=== PATIENT | male | born 1990 | race Caucasian/White ===

== ENCOUNTER 2017-07-07 13:19 | Emergency (ER) | payer OTHER ==
[~2017-07-07] VITALS: Ht 182.9 cm; Wt 70.0 kg
[2017-07-07 13:25] VITALS: BP 150/98; PULSE 104; RESP 16; TEMP 97.3; O2SAT 99
--- NOTE | 2017-07-07 14:31 | RADRPT ---
EXAM DATE/TIME: 07/07/2017 14:08 [place] COMPARISON: No previous studies available for comparison. INDICATIONS : Post reduction of the left shoulder. MEDICAL HISTORY : None. SURGICAL HISTORY : None. ENCOUNTER: Initial ACUITY: 1 day PAIN SCORE: 7/10 LOCATION: Left shoulder. FINDINGS: There is an old, healed fracture of the left clavicle. The humeral head is well situated within the glenoid fossa. The visualized pulmonary parenchyma is clear. CONCLUSION: 1. Old, healed left clavicular fracture. 2. The humeral head appears well aligned within the glenoid fossa. Huber Coleman MD on July 07, 2017 at 14:27 Board Certified Radiologist. This report was verified electronically.
[2017-07-07] MEDS ORDERED: IBUP-232 PO (14:45)
[2017-07-07] MEDS ORDERED: ROBA750T PO (14:45)
--- NOTE | 2017-07-07 14:47 | PD ---
HPI Chief Complaint: Injury Time Seen by Provider: 13:52 Travel History International Travel<30 days: No Contact w/Intl Traveler<30days: No Traveled to known affect area: No History of Present Illness HPI 26-year-old male presents to the emergency room for evaluation of left shoulder dislocation. Patient was riding his skim board when he fell off and landed on the shoulder. [place]. Reports immediate pain. States he has had his shoulder dislocated 5 times previously. He requests not to be placed under conscious sedation as it will make him drowsy the rest of the day. He has never seen an orthopedic physician for this. Patient denies any other chronic medical conditions or daily medications. Denies paresthesias. Reports significant pain worse with range of motion. Patient denies any chronic medical conditions or daily medications. PFSH Social History Alcohol Use: Yes (OCC) Tobacco Use: No Substance Use: No Allergies-Medications (Allergen,Severity, Reaction): Coded Allergies: No Known Allergies (Unverified , 07/07/17) Reported Meds & Prescriptions Reported Meds & Active Scripts Active Robaxin (Methocarbamol) 750 Mg Tab 750 Mg PO Q8HR Ibuprofen 600 Mg Tab 600 Mg PO Q8HR PRN Review of Systems Except as stated in HPI: all other systems reviewed are Neg Physical Exam Narrative GENERAL: Well-nourished, well-developed male in no acute distress. Afebrile. Ambulatory. Resting comfortably. SKIN: Focused skin assessment warm/dry. HEAD: Normocephalic. EYES: No scleral icterus. No injection or drainage. NECK: Supple, trachea midline. No JVD or lymphadenopathy. CARDIOVASCULAR: Regular rate and rhythm without murmurs, gallops, or rubs. RESPIRATORY: Breath sounds equal bilaterally. No accessory muscle use. MUSCULOSKELETAL: No cyanosis, or edema. 2+ radial pulse in the left. Obvious dislocation of the left shoulder. Limited range of motion secondary to pain. Data Data Last Documented VS Vital Signs Date Time Temp Pulse Resp B/P (MAP) Pulse Ox O2 Delivery O2 Flow Rate FiO2 07/07/17 14:11 18 Room Air 07/07/17 13:25 97.3 104 150/98 (115) 99 Orders Orders Shoulder, Limited(2vws) (07/07/17 ) Support Splint (07/07/17 14:37) Ed Discharge Order (07/07/17 14:44) Sling And Swathe (07/07/17 ) [facility] Medical Decision Making Medical Screen Exam Complete: Yes Emergency Medical Condition: Yes Medical Record Reviewed: Yes Differential Diagnosis Dislocation, contusion, abrasion, fracture Narrative Course 26-year-old male presents to the emergency room for evaluation of recurrent dislocation of the left shoulder. Patient dislocated his shoulder just prior to arrival when he fell off of his skim board. Denies paresthesias. Reports significant pain, worse with range of motion. Left upper extremity is neurovascularly intact with 2+ radial pulse. Radial, ulnar, median nerves intact. Patient asked not to be sedated because he did not want to be drowsy the rest of the day. Lidocaine was inserted into the patient's shoulder and shoulder was reduced, see alternate provider note for details. Postreduction films are unremarkable for acute injury. He was given a sling but refused. He was discharged with prescriptions for ibuprofen and Robaxin. Told to follow-up with an orthopedic surgeon or return for worsening symptoms. He understands and agrees to plan. Diagnosis Primary Impression: Recurrent dislocation, left shoulder Referrals: Orthopaedic Surgeon Primary Care Physician Additional Instructions: Rest and drink plenty of fluids. Take Robaxin as directed, as needed for pain. Take ibuprofen with food as directed, as needed for pain. Apply ice to the affected area for 20 minutes at a time, as needed for pain and swelling. Follow-up with a primary care physician. Return to the emergency room for worsening symptoms. Scripts Methocarbamol (Robaxin) 750 Mg Tab 750 MG PO Q8HR for Muscle Spasm, #12 TAB 0 Refills Prov: Wolfgang Roman MD 07/07/17 Ibuprofen (Ibuprofen) 600 Mg Tab 600 MG PO Q8HR Y for PAIN, #15 TAB 0 Refills Prov: Wolfgang Roman MD 07/07/17 Disposition: 01 DISCHARGE HOME Condition: Stable Juju Castellano Jul 07, 2017 14:47
--- NOTE | 2017-07-07 14:50 | PD ---
Physical Exam Narrative patient was seen by me and my certified surgical first assistant. Data Data Last Documented VS Vital Signs Date Time Temp Pulse Resp B/P (MAP) Pulse Ox O2 Delivery O2 Flow Rate FiO2 07/07/17 14:11 18 Room Air 07/07/17 13:25 97.3 104 150/98 (115) 99 Orders Orders Shoulder, Limited(2vws) (07/07/17 ) Support Splint (07/07/17 14:37) Ed Discharge Order (07/07/17 14:44) MDM Supervised Visit with ALONDRA: Yes Procedures Procedure Narrative Reduction of left shoulder dislocation: 10 cc 1% lidocaine left shoulder joint injection. Traction countertraction technique applied to left arm. The dislocation was reduced. Postreduction x- ray was obtained. Sling applied. Diagnosis Primary Impression: Recurrent dislocation, left shoulder Referrals: Orthopaedic Surgeon Primary Care Physician Additional Instruction: Rest and drink plenty of fluids. Take Robaxin as directed, as needed for pain. Take ibuprofen with food as directed, as needed for pain. Apply ice to the affected area for 20 minutes at a time, as needed for pain and swelling. Follow-up with a primary care physician. Return to the emergency room for worsening symptoms. Scripts Methocarbamol (Robaxin) 750 Mg Tab 750 MG PO Q8HR for Muscle Spasm, #12 TAB 0 Refills Prov: Wolfgang Roman MD 07/07/17 Ibuprofen (Ibuprofen) 600 Mg Tab 600 MG PO Q8HR Y for PAIN, #15 TAB 0 Refills Prov: Wolfgang Roman MD 07/07/17 Disposition: 01 DISCHARGE HOME Condition: Stable Wolfgang Roman MD Jul 07, 2017 14:50
== END 2017-07-07 14:53 | disposition home or self-care (01) ==
LOC: NEPD 13:19
DX: M24.412 Recurrent dislocation, left shoulder (principal); V91.88XA Other injury due to other accident to other unpowered watercraft, initial encounter; Y93.18 Activity, surfing, windsurfing and boogie boarding; Y92.832 Beach as the place of occurrence of the external cause
CPT/HCPCS: 29240; 73030